=== PATIENT | male | born 1995 | race Caucasian/White ===

== ENCOUNTER 2016-10-24 16:18 | Emergency (ER) | payer OTHER ==
[2016-10-24 16:26] VITALS: RESP 16; TEMP 97.5
--- NOTE | 2016-10-24 17:29 | EDPHY ---
H & P Time Seen by Provider: 10/24/16 16:28 HPI/ROS: CHIEF COMPLAINT: Ingrown right toenail HISTORY OF PRESENT ILLNESS: 21-year-old male presents to the emergency department with ingrown right toenail. The patient apparently has had problems for many years. He is requesting that his toenail be partially removed. He denies any known trauma or injury. He states this is an ongoing problem that he gets a lot. He believes his tetanus shot is current. ROS: Denies numbness or tingling in his toes, pain in the other toes of the right foot. Denies pain is right ankle or fevers or chills. Past Medical/Surgical History: Frequent ingrown toenails Social History: From [place] Smoking Status: Never smoked Physical Exam: On examination of the right great toe the patient has a right ingrown toenail specially the lateral border. It is very erythematous, swollen and very tender. No purulent drainage noted. The patient is already partially resected the toenail. There is no lymphangitic streaking. There is also ingrown toenail noted to the left great toe which is nontender. Constitutional: Initial Vital Signs Temperature (C) 36.4 C 10/24/16 16:20 Heart Rate 95 10/24/16 16:20 Respiratory Rate 16 10/24/16 16:20 Blood Pressure 125/89 H 10/24/16 16:20 O2 Sat (%) 94 10/24/16 16:20 O2 Delivery Mode Room Air Allergies/Adverse Reactions: No Known Allergies Allergy (Verified 10/24/16 16:23) Home Medications: Medication Instructions Recorded Cephalexin [Keflex] 500 mg PO QID #28 cap 10/24/16 oxyCODONE/APAP 5/325 [Percocet 1 - 2 tab PO Q4-6PRN PRN #11 tab 10/24/16 5/325] MDM/Departure - MDM Procedures: After consent was obtained from the patient, digital block was performed to the right great toe using 1% lidocaine without epinephrine 0.5% bupivacaine without epinephrine. After adequate anesthesia, the skin was again cleansed with chlorhexidine and the lateral aspect of the right great toenail was excised and removed. Minimal bleeding was noted. Bacitracin and dressing applied. Medications Given: Discontinued Medications Cephalexin (Keflex 500 Mg Prepack#4) 1 btl TAKEHOME EDNOW ONE PRN Reason: Protocol Stop: 10/24/16 17:31 Last Admin: 10/24/16 17:39 Dose: 1 btl Oxycodone/Acetaminophen (Percocet 5/325mg Prepack#4) 1 btl TAKEHOME EDNOW ONE Stop: 10/24/16 17:31 Last Admin: 10/24/16 17:40 Dose: 1 btl ED Course/Re-evaluation: 21-year-old male presents requesting would resection of the right great toenail. See procedure note. I did discuss with the patient that he should have follow-up with decating machine operator. He did not want to wait to see a decating machine operator this week. He is requesting that the toenail be removed now. Patient will be treated with Keflex. Also encouraged to continue soaking foot in warm water. Discouraged from cutting his toenails too short. He will return if he has any side other signs or symptoms of infection or any other concerns. Patient was also seen examined by Dr. Umair Yusuf, secondary supervising physician who agrees with treatment plan. - Depart Disposition: Home, Routine, Self-Care Clinical Impression: Ingrown right big toenail, partial toenail removal Condition: Good Instructions: Ingrown Nail (ED), Acute Wounds (ED) Additional Instructions: Keflex 500 mg 4 times daily for 7 days to prevent infection. Soak foot in warm water for 15-20 minute every 2-3 hours. Return to the emergency department if you develop any signs or symptoms of infection such as redness, swelling, increased pain, fever, purulent drainage. Prescriptions: Cephalexin [Keflex] 500 mg PO QID #28 cap oxyCODONE/APAP 5/325 [Percocet 5/325] 1 - 2 tab PO Q4-6PRN PRN #11 tab PRN Reason: For Moderate To Severe Pain Referrals: Phu Bowers MD [Doctor of Podiatric Medicine] - As per Instructions ( Food Technology Teacher propagation worker)
[2016-10-24] MEDS ORDERED: OXYCODONE/APAP 5/325MG PREPACK#4 BTL TAKEHOME ONE ×2 (17:30→17:38)
[2016-10-24] MEDS ORDERED: CEPHALEXIN 500MG PREPACK#4 BTL TAKEHOME ONE ×2 (17:30→17:39)
[2016-10-24 17:43] VITALS: BP 122/73; PULSE 76; O2SAT 98
== END 2016-10-24 17:40 | disposition home or self-care (01) ==
PROC: 0HBRXZZ Excision of Toe Nail, External Approach (ICD-10-PCS; principal; 2016-10-24)
DX: L60.0 Ingrowing nail (principal)

== ENCOUNTER 2017-11-16 16:58 | Emergency (ER) | payer OTHER ==
[2017-11-16 17:15] VITALS: BP 121/74
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
[2017-11-16] MEDS ORDERED: IBUPROFEN 800 MG TAB PO ONE (18:15)
[2017-11-16] MEDS ORDERED: IBUPROFEN 200 MG TAB PO ONE (18:16)
== END 2017-11-16 19:28 | disposition home or self-care (01) ==
DX: S40.021A Contusion of right upper arm, initial encounter (principal); J45.909 Unspecified asthma, uncomplicated; V03.90XA Pedestrian on foot injured in collision with car, pick-up truck or van, unspecified whether traffic or nontraffic accident, initial encounter; Y92.410 Unspecified street and highway as the place of occurrence of the external cause; Y99.8 Other external cause status; Y93.02 Activity, running